=== PATIENT | female | born 1955 | race African-American/Black ===

== ENCOUNTER → 2018-02-27 | Outpatient (CLI) | payer OTHER ==
[~2018-02-27] MED LIST: ACYC800T PO; FEXO15TA PO; FLUT1SPR17; MULT1TAB84 PO; SERT-132 PO; TRIA.1%T TOPICAL
[2018-02-27 12:57] LABS: AUTOMATED NEUTROPHIL # 1.7 TH/MM3 (1.8-7.7); BASOPHIL % 0.9 % (0.0-2.0); EOSINOPHIL # 0.1 TH/MM3 (0-0.4); EOSINOPHIL % 1.9 % (0.0-4.0); HEMOGLOBIN 12.1 GM/DL (11.6-15.3); LYMPH % 43.1 % (9.0-44.0); LYMPHOCYTE # 1.6 TH/MM3 (1.0-4.8); MEAN CELL VOLUME 70.9 FL (80.0-100.0); MEAN CORPUSCULAR HEMOGLOBIN 22.5 PG (27.0-34.0); MEAN CORPUSCULAR HGB CONC 31.7 % (32.0-36.0); MEAN PLATELET VOLUME 7.4 FL (7.0-11.0); MONO % 8.7 % (0.0-8.0); MONOCYTE # 0.3 TH/MM3 (0-0.9); NEUT % 45.4 % (16.0-70.0); PLATELET COUNT 272 TH/MM3 (150-450); RED BLOOD COUNT 5.37 MIL/MM3 (4.00-5.30); RED CELL DISTRIBUTION WIDTH 17.9 % (11.6-17.2); WHITE BLOOD COUNT 3.7 TH/MM3 (4.0-11.0)
[2018-02-27 13:34] LABS: ALBUMIN 3.8 GM/DL (3.4-5.0); ALT (GPT) 17 U/L (10-53); AST (GOT) 18 U/L (15-37); BLOOD UREA NITROGEN 9 MG/DL (7-18); CHLORIDE 105 MEQ/L (98-107); CHOLESTEROL 217 MG/DL (120-200); CREATININE 0.97 MG/DL (0.50-1.00); GLOMERULAR FILTRATION RATE 70 ML/MIN (>89); GLUCOSE,RANDOM 90 MG/DL (74-106); SODIUM (NA) 143 MEQ/L (136-145); TRIGLYCERIDES 100 MG/DL (42-150)
[2018-02-27 13:44] LABS: ALKALINE PHOSPHATASE 65 U/L (45-117); CHOLESTEROL/ HDL RATIO 3.69 RATIO; HDL CHOLESTEROL 58.8 MG/DL (40.0-60.0); LDL CHOLESTEROL 138 MG/DL (0-99); TOTAL BILIRUBIN ADULT 0.6 MG/DL (0.2-1.0); TOTAL PROTEIN 7.4 GM/DL (6.4-8.2)
[2018-02-27 16:53] LABS: HEMOGLOBIN A1C 5.9 % (4.3-6.0)
== END ==
LOC: CLAB 11:53
PROVIDERS: ATTEND Family Medicine
DX: Z00.00 Encounter for general adult medical examination without abnormal findings (principal); E78.00 Pure hypercholesterolemia, unspecified; R73.01 Impaired fasting glucose
CPT/HCPCS: 80053; 80061; 83036; 84443; 85025; 86803

== ENCOUNTER → 2018-03-20 | Outpatient (CLI) | payer OTHER ==
[~2018-03-20] VITALS: Ht 167.6 cm; Wt 101.6 kg
[~2018-03-20] MED LIST changes: -ACYC800T PO; +BIOT10TA PO; +CETI-1 PO; +CHLORHEXIDINE GLUCONATE 2 % 1 PACK (2 CLOTHS) TOPICAL PRN; +DEXTROSE 5% IN WATE 1000ML INJ 1,000 ML IV SCH; -FEXO15TA PO; -FLUT1SPR17; +LACTATED RINGER'S 1000 ML IV PRN; +METOPROLOL TARTRATE 25 MG TAB PO PRN; -MULT1TAB84 PO; +POVIDONE IODINE 5% (ANTISEPSIS KIT) 4 APPLICATIONS EACH NARE PRN; +SODIUM CHLORID 0.9% 500 ML IV PRN; -TRIA.1%T TOPICAL
[2018-03-20 11:14] VITALS: BP 126/81; PULSE 77; RESP 16; TEMP 97.4; O2SAT 96
--- NOTE | 2018-03-20 13:22 | MR ---
cc: Dami Emery MD, Melanie R MD DATE: 03/20/2018 PREOPERATIVE DIAGNOSIS: Colon cancer screening. POSTOPERATIVE DIAGNOSIS: Normal colonoscopy with sigmoid diverticulosis and a 2.0 cm lipoma at the splenic flexure. PROCEDURE PERFORMED: Total colonoscopy. SURGEON: Dami Emery MD ANESTHESIA: MAC. INDICATIONS: This is a 62-year-old who presents for colon cancer screening. PROCEDURE: The Pentax EC 30 890 colonoscope was introduced from the anus to the cecum with some left lower quadrant pressure in the left lateral position. The bowel was identified and the cecum seen completely. The scope was slowly withdrawn. The bowel prep was excellent. The above mentioned lipoma was identified and left alone. There was extensive sigmoid diverticulosis with no active inflammation. Some small hyperplastic polyps were present in the rectosigmoid area that were left alone. The patient tolerated the procedure well. PLAN: Recommend colonoscopy in 10 years. Dami Emery MD DLM/TL , 01:04 PM , 01:21 PM
--- NOTE | 2018-03-20 13:27 | EKG ---
Date Performed: 03/20/2018 Time Performed: 11:10:44 PTAGE: 62 years EKG: Sinus rhythm NONSPECIFIC T-WAVE ABNORMALITY BORDERLINE ECG PREVIOUS TRACING : 11/10/2012 23.32 DOCTOR: Boston Jennings Interpretating Date/Time 03/20/2018 13:27:21
[2018-03-20 13:30] VITALS: BP 145/78; PULSE 68; RESP 16; TEMP 97.4; O2SAT 99
== END ==
LOC: HSDC 09:56
PROVIDERS: ATTEND Colon & Rectal Surgery
DX: Z12.11 Encounter for screening for malignant neoplasm of colon (principal); K57.30 Diverticulosis of large intestine without perforation or abscess without bleeding; K62.1 Rectal polyp; D17.79 Benign lipomatous neoplasm of other sites; R94.31 Abnormal electrocardiogram [ECG] [EKG]
CPT/HCPCS: 93005